=== PATIENT | female | born 1960 | race Caucasian/White ===

== ENCOUNTER 2017-03-29 08:59 | Day surgery (SDC) | payer OTHER ==
[~2017-03-29] VITALS: Ht 152.4 cm; Wt 81.6 kg
[~2017-03-29 08:59] MED LIST: ADDERALL XR 1010 MG PO; ADDERALL10 MG PO; ADDERALL30 MG PO; ADVAIR 500/501 DISK IH; ALPRAZOLAM1 MG; ASPIRIN81 M2 PO; Advair 250/50 Diskus IH; CELECOXIB200 MG PO; CLONAZEPAM1 MG PO; Combivent IH; DESYREL 150 MG150 MG PO; DOCUSATE SODIU100 MG PO; DUONEB 2.5-0.5 M3 ML AEROSOL; EFFEXOR75 MG PO; FOLIC ACID1 MG PO; HYDROCODON-ACE1 EAC7 PO; Habitrol,Nicoderm CQ TD; KLONOPIN0.5 M1 PO; LIPITOR20 MG PO; LIPOFLAVOVIT C1 EACH PO; LISINOPRIL20 MG PO; LOPRESSOR50 MG PO; LOVENOX40 MG/0.4 SC; LYRICA50 MG PO; Lipitor PO; METHADONE10 MG PO; NORVASC5 MG PO; OXYCODONE-ACET1 EACH; PERCOCET 7.51 TABLET PO; PREDNISONE20 MG PO; PROAIR HFA8.5 GM IH; PROZAC10 MG PO; PROZAC20 MG PO; REPAN 50-325-41 EAC1 PO; REQUIP0.5 MG PO; REQUIP3 MG PO; SINGULAIR10 MG PO; TESSALON PERLE100 MG PO; TOPAMAX25 MG PO; TOPROL XL50 MG PO; ULTRAM50 MG PO; VENTOLIN HFA18 GM IH; WELLBUTRIN SR150 MG PO; ZANAFLEX2 M1 PO; ZITHROMAX Z-PA250 MG PO; ZYRTEC10 M2 PO; Zithromax PO; [UNRECOGNIZED DRUG - REMARK]; [UNRECOGNIZED DRUG - REMARK]; [UNRECOGNIZED DRUG - REMARK]; [UNRECOGNIZED DRUG - REMARK]; [UNRECOGNIZED DRUG - REMARK]; [UNRECOGNIZED DRUG - REMARK]; [UNRECOGNIZED DRUG - REMARK]; [UNRECOGNIZED DRUG - REMARK]; predniSONE PO
== END 2017-03-29 10:30 | disposition home or self-care (01) ==
LOC: PAIN 08:59 → SDC 09:30 → PAIN 09:30
DX: M47.26 Other spondylosis with radiculopathy, lumbar region (principal); M48.06 Spinal stenosis, lumbar region; F17.210 Nicotine dependence, cigarettes, uncomplicated; I10 Essential (primary) hypertension; F90.9 Attention-deficit hyperactivity disorder, unspecified type; E78.5 Hyperlipidemia, unspecified; J44.9 Chronic obstructive pulmonary disease, unspecified; G25.81 Restless legs syndrome; Z96.659 Presence of unspecified artificial knee joint; Z88.8 Allergy status to other drugs, medicaments and biological substances
CPT/HCPCS: J1030; J2250; J3010; S0020

== ENCOUNTER 2017-04-05 08:58 | Day surgery (SDC) | payer OTHER ==
[~2017-04-05] VITALS: Ht 152.4 cm; Wt 81.6 kg
== END 2017-04-05 11:05 | disposition home or self-care (01) ==
LOC: PAIN 08:58 → SDC 09:30 → PAIN 09:30
DX: M51.16 Intervertebral disc disorders with radiculopathy, lumbar region (principal); M51.36 Other intervertebral disc degeneration, lumbar region; M54.5 Low back pain; M48.06 Spinal stenosis, lumbar region; I10 Essential (primary) hypertension; I73.9 Peripheral vascular disease, unspecified; J44.9 Chronic obstructive pulmonary disease, unspecified; F17.210 Nicotine dependence, cigarettes, uncomplicated; Z79.891 Long term (current) use of opiate analgesic; Z79.899 Other long term (current) drug therapy
CPT/HCPCS: J1030; J2250; J3010; S0020

== ENCOUNTER 2017-05-30 09:02 | Day surgery (SDC) | payer OTHER ==
[~2017-05-30] VITALS: Ht 152.4 cm; Wt 84.1 kg
== END 2017-05-30 11:15 | disposition home or self-care (01) ==
LOC: PAIN 09:02 → SDC 09:30 → PAIN 11:15
PROC: 015B3ZZ Destruction of Lumbar Nerve, Percutaneous Approach (ICD-10-PCS; principal; 2017-05-30)
DX: M47.26 Other spondylosis with radiculopathy, lumbar region (principal); F41.9 Anxiety disorder, unspecified; M48.06 Spinal stenosis, lumbar region; F17.210 Nicotine dependence, cigarettes, uncomplicated; G89.29 Other chronic pain; M25.552 Pain in left hip; M25.551 Pain in right hip; I10 Essential (primary) hypertension; E78.5 Hyperlipidemia, unspecified; M79.7 Fibromyalgia; D75.1 Secondary polycythemia; G44.229 Chronic tension-type headache, not intractable; J44.9 Chronic obstructive pulmonary disease, unspecified; G25.81 Restless legs syndrome; F90.9 Attention-deficit hyperactivity disorder, unspecified type; F32.9 Major depressive disorder, single episode, unspecified; Z96.659 Presence of unspecified artificial knee joint; Z88.8 Allergy status to other drugs, medicaments and biological substances
CPT/HCPCS: J1030; J2250; J3010; S0020

== ENCOUNTER 2017-06-06 09:54 | Day surgery (SDC) | payer OTHER ==
[~2017-06-06] VITALS: Ht 152.4 cm; Wt 84.1 kg
== END 2017-06-06 11:50 | disposition home or self-care (01) ==
LOC: PAIN 09:54 → SDC 10:30 → PAIN 11:50
DX: M47.26 Other spondylosis with radiculopathy, lumbar region (principal); M79.7 Fibromyalgia; J44.9 Chronic obstructive pulmonary disease, unspecified; I10 Essential (primary) hypertension; E78.5 Hyperlipidemia, unspecified; M48.06 Spinal stenosis, lumbar region; F17.210 Nicotine dependence, cigarettes, uncomplicated; Z79.891 Long term (current) use of opiate analgesic
CPT/HCPCS: J1030; J1885; J2250; J3010; S0020

== ENCOUNTER 2017-09-01 18:10 | Emergency (ER) | payer OTHER ==
[~2017-09-01] VITALS: Ht 152.4 cm; Wt 94.6 kg
[2017-09-01 20:09] LABS: BASOPHIL COUNT 0.1 K/uL (0-0.1); EOSINOPHIL (%) 3.2 % (0-5); EOSINOPHIL COUNT 0.4 K/uL (0-0.3); HEMATOCRIT 44.3 % (36.0-46.0); IMMATURE GRANULOCYTE (%) 0.4 % (0.0-0.7); INSTRUMENT ABS NEUTROPHIL CT 7.3 K/uL; LYMPHOCYTE COUNT 2.7 K/uL (1.0-2.8); MCH 29.5 PG (29.0-34.0); MCHC 32.1 G/DL (30.0-36.0); MCV 91.9 FL (83-99); MEAN PLAT.VOLUME 9.6 uM^3 (9.5-12.4); MONOCYTE (%) 8.2 % (3-12); MONOCYTE COUNT 0.9 K/uL (0-0.8); NEUTROPHIL (%) 64.3 % (45-76); NEUTROPHIL COUNT 7.3 K/uL (1.8-6.4); PLATELET COUNT 194 K/uL (156-360); RBC DIS.WIDTH-CV 15.4 % (11.8-14.6); RBC DIS.WIDTH-SD 51.4 % (39-53); RED BLOOD COUNT 4.82 M/uL (3.80-5.20); WHITE BLOOD COUNT 11.3 K/uL (4.1-10.2)
[2017-09-01 20:17] LABS: CHLORIDE 103 mEq/L (99-109); POTASSIUM 3.8 mEq/L (3.7-5.4); SODIUM 142 mEq/L (136-147)
[2017-09-01 20:19] LABS: GLUCOSE 105 mg/dL (70-99)
[2017-09-01 20:20] LABS: ANION GAP 12 MEQ/L (2-14)
[2017-09-01 20:23] LABS: GFR ESTIMATE (CALCULATED) > 59 mL/min/; UREA NITROGEN (BUN) 10 mg/dL (9-23)
[2017-09-01 21:46] LABS: ADD MIUA? NO; BILIRUBIN NEGATIVE; BLOOD NEGATIVE; COLOR STRAW ((YELLOW)); GLUCOSE (STRIP) NEGATIVE; KETONES NEGATIVE; LEUKOCYTES NEGATIVE; NITRITE NEGATIVE; PROTEIN (STRIP) NEGATIVE; SPECIFIC GRAVITY 1.006 (1.000-1.030); UROBILINOGEN 0.2 MG/DL (0.2-1.0)
[2017-09-01] MEDS ORDERED: PREDNISONE20 MG PO (22:56)
[2017-09-01] MEDS ORDERED: PROAIR HFA8.5 GM IH (22:56)
[2017-09-01 23:02] VITALS: BP 138/76
== END 2017-09-01 23:03 | disposition home or self-care (01) ==
LOC: EME 18:10
PROVIDERS: Physician Assistant
DX: J44.1 Chronic obstructive pulmonary disease with (acute) exacerbation (principal); R60.0 Localized edema; I10 Essential (primary) hypertension; K76.0 Fatty (change of) liver, not elsewhere classified; Z90.710 Acquired absence of both cervix and uterus; F17.200 Nicotine dependence, unspecified, uncomplicated
CPT/HCPCS: 71020; 71250; 80048; 81003; 83880; 85025; 85379; 93005; 93970; 99281; 99284; J7512

== ENCOUNTER 2018-07-10 15:05 | Emergency (ER) | payer OTHER ==
[~2018-07-10] VITALS: Ht 152.4 cm; Wt 93.3 kg
[2018-07-10 15:56] LABS: HEMATOCRIT 46.3 % (36.0-46.0); HEMOGLOBIN 14.7 G/DL (11.9-15.5); MCH 27.3 PG (29.0-34.0); MCHC 31.7 G/DL (30.0-36.0); MCV 85.9 FL (83-99); PLATELET COUNT 169 K/uL (156-360); RBC DIS.WIDTH-CV 15.3 % (11.8-14.6); RBC DIS.WIDTH-SD 47.9 % (39-53); RED BLOOD COUNT 5.39 M/uL (3.80-5.20); WHITE BLOOD COUNT 8.3 K/uL (4.1-10.2)
[2018-07-10 16:06] LABS: CHLORIDE 98 mEq/L (99-109); POTASSIUM 3.2 mEq/L (3.7-5.4); SODIUM 139 mEq/L (136-147)
[2018-07-10 16:08] LABS: GLUCOSE 180 mg/dL (70-99)
[2018-07-10 16:12] LABS: CREATININE 0.8 mg/dL (0.6-1.3); GFR ESTIMATE (CALCULATED) > 59 mL/min/
[2018-07-10 16:13] LABS: UREA NITROGEN (BUN) 9 mg/dL (9-23)
[2018-07-10 17:11] LABS: TROP-I INTERPRETATION NEGATIVE; TROPONIN-I < 0.01 ng/mL (0.0-0.30)
[2018-07-10] MEDS ORDERED: PREDNISONE20 MG PO (19:09)
[2018-07-10 19:32] VITALS: BP 143/99
== END 2018-07-10 19:39 | disposition home or self-care (01) ==
LOC: EME 15:05
DX: J44.1 Chronic obstructive pulmonary disease with (acute) exacerbation (principal); R00.0 Tachycardia, unspecified; I49.3 Ventricular premature depolarization; R94.31 Abnormal electrocardiogram [ECG] [EKG]; F41.9 Anxiety disorder, unspecified; F17.200 Nicotine dependence, unspecified, uncomplicated; Z79.51 Long term (current) use of inhaled steroids; Z79.891 Long term (current) use of opiate analgesic; Z96.652 Presence of left artificial knee joint; Z98.890 Other specified postprocedural states; Z90.49 Acquired absence of other specified parts of digestive tract; Z90.710 Acquired absence of both cervix and uterus
CPT/HCPCS: 71046; 80048; 84484; 85027; 93005; 94640; 99281; 99285; J7512